=== PATIENT | male | born 1955 | race African-American/Black ===

== ENCOUNTER → 2016-12-04 | Outpatient (CLI) | payer MEDICAID | END | disposition home or self-care (01) | LOC: ROC 14:17 | PROVIDERS: ATTEND Radiology Radiation Oncology | DX: Z08 Encounter for follow-up examination after completed treatment for malignant neoplasm (principal); C61 Malignant neoplasm of prostate; C22.0 Liver cell carcinoma; B19.20 Unspecified viral hepatitis C without hepatic coma | CPT/HCPCS: 99212; G0463 ==

== ENCOUNTER → 2017-10-25 | Outpatient (CLI) | payer MEDICAID | END | disposition home or self-care (01) | LOC: ROC 07:23 | PROVIDERS: ATTEND Radiology Radiation Oncology | DX: C61 Malignant neoplasm of prostate (principal); C22.0 Liver cell carcinoma; N25.9 Disorder resulting from impaired renal tubular function, unspecified; B19.20 Unspecified viral hepatitis C without hepatic coma | CPT/HCPCS: 99212; G0463 ==